=== PATIENT | female | born 1950 | race Caucasian/White ===

== ENCOUNTER 2016-07-04 17:11 | Emergency (ER) ==
[2016-07-04 17:27] VITALS: BP 129/87
[2016-07-04 17:38] LABS: MANUAL DIFF NEEDED? NO
[2016-07-04 17:43] LABS: BASO% 0.2 % (0.0-0.8); EOS# 0.17 X1000 (0.0-0.7); HEMOGLOBIN 13.3 g/dL (12.0-16.0); IMM GRAN# 0.02 X1000 (0.0-0.04); IMM GRAN% 0.4 % (0.0-0.5); LYMPH# 1.97 X1000 (1.2-3.4); LYMPH% 34.9 % (20.5-51.1); MCH 29.2 PG (27-31); MCHC 32.4 g/dL (33-37); MCV 89.9 FL (81-99); MONO# 0.65 X1000 (0.11-0.59); MONO% 11.5 % (1.7-9.3); MPV 9.9 FL (7.4-10.4); PLT 275 X1000 (130-400); RBC 4.56 XMIL (4.2-5.4)
[2016-07-04 18:02] LABS: URINE CULTURE NEEDED? NO; URINE MICRO REVIEW NEEDED? NO; URINE SOURCE CLEAN CATCH
[2016-07-04 18:07] LABS: BILIRUBIN URINE NEGATIVE (NEGATIVE); BLOOD URINE TRACE (NEGATIVE); COLOR YELLOW; GLUCOSE URINE NEGATIVE (NEGATIVE); LEUKOCYTES URINE NEGATIVE (NEGATIVE); NITRITE URINE NEGATIVE (NEGATIVE); PROTEIN URINE NEGATIVE (NEGATIVE); SP GRAVITY URINE 1.007; TURBIDITY URINE CLEAR (CLEAR); UROBILINOGEN URINE NORMAL (NORMAL)
[2016-07-04 18:10] LABS: UR EPITHELIAL CELLS <10 /HPF (<10); URINE BACTERIA NEGATIVE /HPF; URINE RBC <10 /HPF (<10); URINE WBC <10 /HPF (<10)
[2016-07-04 18:15] LABS: AGAP 10; ALBUMIN 4.3 g/dL (3.5-5.0); ALKALINE PHOSPHATASE 83 U/L (32-104); BUN 9 mg/dL (8-22); CALCIUM 9.8 mg/dL (8.8-10.2); CHLORIDE 98 mmol/L (98-107); COSMO 269; GOT 17 U/L (10-30); GPT 28 U/L (10-36); POTASSIUM 3.7 mmol/L (3.5-5.1); SODIUM 135 mmol/L (136-145); TCO2 27 mmol/L (25-35); TOTAL BILIRUBIN 0.15 mg/dL (0.20-1.00); TOTAL PROTEIN 6.9 g/dL (6.3-8.3)
[2016-07-04 18:18] LABS: UR AMPHETAMINES QUAL NONE DETECTED (NONE DETECT); UR BARBITUATES QUAL NONE DETECTED (NONE DETECT); UR BENZODIAZEPIN QUAL PRESUMPTIVE POSITIVE (NONE DETECT); UR CANNABINOIDS QUAL NONE DETECTED (NONE DETECT); UR COCAINE QUAL NONE DETECTED (NONE DETECT); UR METHADONE QUAL NONE DETECTED (NONE DETECT); UR OPIATES QUAL PRESUMPTIVE POSITIVE (NONE DETECT); UR OXYCODONE QUAL NONE DETECTED (NONE DETECT); UR PCP QUAL NONE DETECTED (NONE DETECT)
== END 2016-07-04 20:34 | disposition left against medical advice (07) ==
LOC: ED 17:11
DX: R52 Pain, unspecified (principal)
CPT/HCPCS: 80053; 81001; 85025; G0480

== ENCOUNTER 2017-02-12 18:11 | Inpatient (IN) ==
[2017-02-12 18:36] LABS: MANUAL DIFF NEEDED? NO
[2017-02-12 18:38] LABS: BASO% 0.1 % (0.0-0.8); EOS# 0.05 X1000 (0.0-0.7); EOS% 0.6 % (0.0-10.0); HEMATOCRIT 36.9 % (37.0-47.0); HEMOGLOBIN 12.2 g/dL (12.0-16.0); IMM GRAN# 0.01 X1000 (0.0-0.04); IMM GRAN% 0.1 % (0.0-0.5); LYMPH# 1.68 X1000 (1.2-3.4); LYMPH% 20.7 % (20.5-51.1); MCH 29.5 PG (27-31); MCHC 33.1 g/dL (33-37); MCV 89.1 FL (81-99); MONO# 0.93 X1000 (0.11-0.59); MONO% 11.4 % (1.7-9.3); MPV 9.8 FL (7.4-10.4); NEUT% 67.1 % (42.2-75.2); PLT 251 X1000 (130-400); RBC 4.14 XMIL (4.2-5.4)
[2017-02-12 18:46] LABS: UR AMPHETAMINES QUAL NONE DETECTED (NONE DETECT); UR BARBITUATES QUAL NONE DETECTED (NONE DETECT); UR BENZODIAZEPIN QUAL NONE DETECTED (NONE DETECT)
[2017-02-12 18:47] LABS: UR CANNABINOIDS QUAL NONE DETECTED (NONE DETECT); UR COCAINE QUAL NONE DETECTED (NONE DETECT); UR MDMA QUAL NONE DETECTED (NONE DETECT); UR METHADONE QUAL NONE DETECTED (NONE DETECT); UR METHAMPHETAMINE QUAL NONE DETECTED (NONE DETECT); UR OPIATES QUAL PRESUMPTIVE POSITIVE (NONE DETECT); UR OXYCODONE QUAL NONE DETECTED (NONE DETECT); UR PCP QUAL NONE DETECTED (NONE DETECT); UR TCA QUAL NONE DETECTED (NONE DETECT)
[2017-02-12] MEDS ORDERED: NARCAN IV ONE ×2 (18:47→18:55)
[2017-02-12] MEDS ORDERED: NARCAN ONE (18:48)
[2017-02-12] MEDS ORDERED: NS 1,000 ML ONE (18:48)
[2017-02-12 18:56] LABS: ACETAMINOPHEN < 1.2 ug/mL (10-30); AGAP 11; ALBUMIN 4.4 g/dL (3.5-5.0); ALKALINE PHOSPHATASE 67 U/L (32-104); BUN 35 mg/dL (8-22); CALCIUM 10.1 mg/dL (8.8-10.2); CHLORIDE 90 mmol/L (98-107); COSMO 268; GOT 19 U/L (10-30); GPT 12 U/L (10-36); POTASSIUM 4.1 mmol/L (3.5-5.1); SODIUM 129 mmol/L (136-145); TCO2 28 mmol/L (25-35); TOTAL PROTEIN 7.3 g/dL (6.3-8.3)
[2017-02-12] MEDS ORDERED: NS 1,000 ML IV ONE (18:56)
--- NOTE | 2017-02-12 19:57 | Diag Imaging Result Doc PS360 ---
EXAM: CHEST-PORTABLE INDICATION: somnolence TECHNIQUE: One view COMPARISON: 03/08/2016 FINDINGS: The lungs are grossly clear. There is no discrete pleural fluid collection or pneumothorax. The cardiomediastinal silhouette and central vasculature are grossly unremarkable. IMPRESSION: No evidence of acute pathology by plain radiograph. Electronically signed by Kayden Haynes 02/12/2017 7:55 PM
--- NOTE | 2017-02-12 20:20 | PROVIDER DOCUMENTATION ---
This chart was entered by Audelia Shafer Scribe, acting as scribe for Rene Alfonso MD. HPI-General Adult - General Chief Complaint: Ingestion,Accidental Stated Complaint: Accidental Overdose Time Seen by Provider: 02/12/17 18:29 Source: family Allergies/Adverse Reactions: Patient Allergies Allergy/AdvReac Type Severity Reaction Status Date / Time No Known Allergies Allergy Verified 07/22/15 13:56 Home Medications: Home Medication List Medication Instructions Recorded Confirmed Last Taken Type Aspirin 81 mg PO DAILY 04/08/14 07/22/15 09/19/14 History Hydrocodone/APAP 10 mg/325 mg 10 mg PO DAILY PRN 04/08/14 07/22/15 09/19/14 History [[place]-10] Morphine Sulfate [Morphine Sulfate 100 mg PO DAILY PRN 04/08/14 07/22/15 History ER] Albuterol Sulfate [Albuterol 1 - 2 puff IH 3-4XDAY PRN PRN #1 09/19/14 07/22/15 Unknown Rx Sulfate Hfa] hfa.aer.ad Metoprolol [Lopressor] 25 mg PO BID #60 tablet 09/19/14 07/22/15 Unknown Rx Nebulizer Accessories [E-Z Spacer 1 each MC BID #1 each 09/19/14 07/22/15 Unknown Rx Pedspak] Olanzapine Rapdis [Zyprexa Zydis] 5 mg PO DAILY #30 tablet 09/19/14 07/22/15 Unknown Rx Potassium Chloride [K-Tab] 20 meq PO DAILY #60 tablet.er 09/19/14 07/22/15 Unknown Rx Amoxicillin/Pot Clavulanate 875 mg PO Q12HR #14 tablet 03/11/15 07/22/15 Unknown Rx [Augmentin] Baclofen 20 mg PO 03/11/15 07/22/15 Unknown History Ofloxacin Otic [Floxin Otic] 5 drop .ROUTE BID #1 bottle 03/11/15 07/22/15 Unknown Rx Morphine Sulfate 30 mg PO BID #6 tablet 07/22/15 Unknown Rx Sulfamethoxazole/Trimethoprim 1 each PO BID #20 tablet 03/08/16 Unknown Rx [Bactrim Ds Tablet] Clonidine [Catapres] 0.1 mg PO DAILY #14 tablet 06/27/16 Unknown Rx Ondansetron [Zofran] 4 mg PO Q6H PRN PRN #20 tablet 06/27/16 Unknown Rx Lisinopril 20 mg PO QAM #90 tablet 02/10/17 Unknown Rx - History of Present Illness -Gen Adult Nature of Presenting Problems: 66 Y/O F presents to ER by EMS with the complain of taking her dialy pain medication twice. pt family states that pt has lower back and spine pain history and takes those medications. pt family states that pt went to take nap in her bed and was found unresponsive by her . pt family denies any other symptoms. Severity: reports: moderate Onset/Duration: reports: just prior to arrival Timing: reports: still present Review of Systems - Adult - REVIEW OF SYSTEMS - ADULT Constitutional: reports: no symptoms reported Eyes: reports: no symptoms reported Ears, Nose, Mouth & Throat: reports: no symptoms reported Cardiovascular: reports: no symptoms reported Respiratory: reports: no symptoms reported Gastrointestinal: reports: no symptoms reported Genitourinary: reports: no symptoms reported Musculoskeletal: reports: no symptoms reported Integumentary: reports: no symptoms reported Neurological: reports: no symptoms reported Psychiatric: reports: alcohol/drug dependence (overdose on daily pain medications). denies: emotional problems, panic attacks, suicidal thoughts Endocrine: reports: no symptoms reported Hematologic/Lymphatic: reports: no symptoms reported Allergic/Immunologic: reports: no symptoms reported All Other Systems: Reviewed and Negative Past History - Adult - PAST MEDICAL HISTORY-ADULT Review of Records: reports: Old Records Reviewed, Nursing Assessment Review Major Childhood Illnesses: reports: denies history Cardiovascular: reports: HTN Respiratory: reports: denies history Gastrointestinal: reports: denies history Obstetrical/Gynecological: reports: other (left breast ca) Genitourinary: reports: denies history Musculoskeletal: reports: arthritis, chronic pain Neurological: reports: denies history Endocrine/Immune: reports: denies history Other Conditions: reports: denies history - PRIOR SURGERIES/PROCEDURES Surgical/Procedure History: reports: cholecystectomy, back/neck (neck), other ( mastectomy) - IMMUNIZATION STATUS Childhood Immunizations: See Nurse Assessment Flu Vaccine: See Nurse Assessment - FAMILY HISTORY Family History: reviewed, not pertinent Physical Exam-General - PHYSICAL EXAM-ADULT Initial Vital Signs Reviewed: Yes - CONSTITUTIONAL General Appearance: mild distress, thin - EYES Eyes: PERRL/EOMI, pink conjunctivae - HEAD, EARS, NOSE, MOUTH & THROAT HENMT: moist mucous membranes, normal ENT inspection - NECK Neck: non-tender, full range of motion, supple - RESPIRATORY Respiratory: chest non-tender, lungs clear, normal breath sounds - CARDIOVASCULAR Cardiovascular: normal peripheral pulses, regular rate, rhythm - GASTROINTESTINAL (ABDOMEN) Abdominal Exam: normal bowel sounds, non tender, soft - MUSCULOSKELETAL Back Exam: normal inspection, no CVA tenderness, no vertebral tenderness Extremity: non-tender, normal inspection - SKIN Integumentary: normal color, normal turgor, warm/dry - NEUROLOGIC Neurologic: grossly normal, no motor/sensory deficits Progress - PLAN OF CARE/RESULTS Progress/Plan/Lab Results: Vital Signs - 8 hr 02/12/17 18:13 Temperature 100.8 F H Pulse Rate 87 Respiratory Rate 14 Blood Pressure 105/59 O2 Sat by Pulse Oximetry 96 Laboratory Results - last 24 hr 02/12/17 18:31 WBC 8.13 RBC 4.14 L Hgb 12.2 Hct 36.9 L MCV 89.1 MCH 29.5 MCHC 33.1 RDW Std Deviation 12.4 Plt Count 251 MPV 9.8 Immature Gran % (Auto) 0.1 Neut % (Auto) 67.1 Lymph % (Auto) 20.7 Bradley % (Auto) 11.4 H Eos % (Auto) 0.6 Baso % (Auto) 0.1 Immature Gran # (Auto) 0.01 Neut # (Auto) 5.45 Lymph # (Auto) 1.68 Bradley # (Auto) 0.93 H Eos # (Auto) 0.05 Baso # (Auto) 0.01 Orders Category Date Time Status Cardiac Monitoring DIRECTED Care 02/12/17 18:16 Active Saline Loc DIRECTED Care 02/12/17 18:16 Active ACETAMINOPHEN [TDM] Stat Lab 02/12/17 18:31 Received ALCOHOL BLOOD Stat Lab 02/12/17 18:31 Received CBC WITH ELECTRONIC DIFF [HEME] Stat Lab 02/12/17 18:31 Completed COMPREHENSIVE METABOLIC PANEL [CHEM] Stat Lab 02/12/17 18:31 Received SALICYLATES [TDM] Stat Lab 02/12/17 18:31 Re[address] DRUG SCREEN PL Stat Lab 02/12/17 18:27 Received Pulse Oximetry Stat Oth 02/12/17 18:16 Active EKG [EKG] Stat Ther 02/12/17 18:16 Ordered Result Diagrams: 02/12/17 18:31 02/12/17 18:31 - REASSESSMENT Reassessment #1 Time Reassessed: 20:18 Status: improving Reassessment Comment: admission offered but patient refused. Wants to go home take care of dogs - EKG 1 Time of EKG reading by physician:: 19:02 EKG Read and Signed by:: Rene Alfonso EKG Interpretation (*Must complete 3 of following elements*): Abnormal Rate: 129 Rhythm: sinus tachycardia with premature supraventricular complexes Comments: sinus tachycardia with premature supraventricular complexes, otherwisenormal - XRAY 1 XRAY: Bilateral XRAY Study: Chest Impression: Normal XRAY Interpretation: no evidence of acute pathology by radiologist Departure - Departure Date of Disposition Decision: 02/12/17 Time of Disposition Decision: 20:19 DIAGNOSIS: Polypharmacy, Opiate abuse, episodic Disposition: HOME 01 Certified Medical Emergency: Emergent Condition: Stable Referrals and Follow-Ups: None,PCP [Primary Care Provider] - - Critical Care Note This patient required my direct & personal management of CC.: Yes Total Time (mins): 60 Critical Care Statement: This patient required my direct personal management to treat or rule out processes, the absence of which, could potentiallly result in sudden, clinically significant life or limb threatening deterioration. Attestation - Physician/ JONES Attestation The physician spent face to face time with patient:: Yes Advanced Practice Provider documentation review:: Supervising physician onsite and consulted in the evaluation and care of this patient. The physician did have a face to face encounter with the patient. This chart was documented by the indicated scribe, (Audelia Shafer Scribe) and accurately reflects the services I performed and decisions made by me, Rene Alfonso MD, as attested by the provider's signature.
--- NOTE | 2017-02-12 21:14 | EKG Report ---
Test Performed on : 02/12/2017 7:02:43 PM Test Reason : Suspected Overdose Blood Pressure : / mmHG Vent. Rate : 129 BPM Atrial Rate : 129 BPM P-R Int : 172 ms QRS Dur : 082 ms QT Int : 286 ms P-R-T Axes : 082 058 025 degrees QTc Int : 418 ms Sinus tachycardia. with premature supraventricular complexes. Otherwise normal ECG When compared with ECG of 12-FEB-2017 18:58, (Unconfirmed) Previous ECG has undetermined rhythm, needs review Unconfirmed Result
[2017-02-13] MEDS: TYLENOL PO PRN (09:48)
[2017-02-13] MEDS: NS 1,000 ML IV SCH ×2 (09:49→19:46)
[2017-02-13 10:39] LABS: AGAP 11; BUN 18 mg/dL (8-22); CALCIUM 10.3 mg/dL (8.8-10.2); CHLORIDE 98 mmol/L (98-107); COSMO 278; POTASSIUM 3.3 mmol/L (3.5-5.1); SODIUM 138 mmol/L (136-145); TCO2 29 mmol/L (25-35)
--- NOTE | 2017-02-13 11:35 | HISTORY AND PHYSICAL ---
PRIMARY PLANT SENIOR MANAGER: HEDY Pereyra. CHIEF COMPLAINT: Was found unresponsive by her after she apparently took 2 doses of her pain medication. HISTORY OF PRESENTING ILLNESS: This is a 66-year-old female who presents to [facility] ER via EMS after found her lying in the bed unresponsive. Apparently the patient had taken 2 doses of her pain medication unintentionally, and was found in the bed unresponsive. When she arrived to the emergency room, she had a temperature of a 100.8. Her sodium was 129, chloride 90, BUN of 35, with a creatinine of 3.7. According to her records, in June of this year, she had a creatinine that was normal at 0.7. She was admitted for further evaluation and treatment. PAST MEDICAL HISTORY: Of hypertension, left breast cancer and chronic pain. PAST SURGICAL HISTORY: Of a cholecystectomy, back and neck surgery, and a left mastectomy. FAMILY HISTORY: Noncontributory. SOCIAL HISTORY: She currently lives with her . Denies any tobacco, alcohol, or illicit drug use. ALLERGIES: She has no known drug allergies. HOME MEDICATIONS: We will verify her home medications and restart as appropriate. LABORATORY DATA: Showed a white blood cell count of 8.13, a hemoglobin of 12.2, hematocrit 36.9, platelets 251,000. Sodium of 129, potassium 4.1, chloride 90, CO2 of 28, BUN of 35, with a creatinine of 3.7, glucose 110. Troponin of 0.024. Urine drug screen was presumptive positive for opiates. Salicylate level was less than 3. Acetaminophen level was less than 1.2. Serum alcohol level showed none detected. A chest x-ray showed no evidence of acute pathology by plain radiograph. EKG showed sinus tachycardia with premature supraventricular complexes at 1:29. REVIEW OF SYSTEMS: She denied any fever, chills, blurred vision, dizziness. She is positive for a headache. Denies any chest pain, coughing, shortness of breath. She denies any abdominal pain, constipation, diarrhea, nausea, vomiting, or burning or hurting with urination. PHYSICAL EXAMINATION: VITAL SIGNS: On arrival, showed a temperature of a 100.8 degrees, respirations 14, pulse 87, blood pressure 105/59, saturating 96% on 2 L via nasal cannula. GENERAL: This is a 66-year-old female who is lying in the bed, and answers questions appropriately. HEENT: Head is normocephalic and atraumatic. Pupils are equal, round, reactive to light. The extraocular movements are intact. The oropharynx and nares are clear. NECK: Supple. LUNGS: Clear to auscultation bilaterally with equal lung expansion and chest wall movement. HEART: With regular rate and rhythm. No murmurs, rubs, or gallops. ABDOMEN: Soft, nontender, nondistended. Bowel sounds are present x4 quadrants. EXTREMITIES: There is no clubbing, cyanosis, or edema. NEUROLOGICAL: The cranial nerves 2-12 appear grossly intact. ASSESSMENT: 1. An unintentional overdose. 2. Hyponatremia. 3. Acute kidney injury. 4. Hypertension. PLAN: She has been admitted to the Medical Unit at [facility]. We will place her on normal saline at 125 mL an hour, Tylenol 650 p.o. q.6 hours p.r.n. We will recheck a BMP this morning, and re- evaluate her kidney function and her sodium, and will verify her home medications. Dictated by HEDY Craig for Juan Pablo Amaro MD cc: HEDY Craig MD Lori Henry, CRNP
[2017-02-13] MEDS ORDERED: KLOR-CON PO ONE ×2 (14:37→20:00)
[2017-02-14] MEDS: TYLENOL PO PRN (01:23)
[2017-02-14] MEDS: NS 1,000 ML IV SCH ×2 (01:24→08:25)
--- NOTE | 2017-02-14 15:00 | DISCHARGE SUMMARY ---
ADMISSION DATE: 02/12/2017 DISCHARGE DATE: 02/14/2017 ADDENDUM: The patient is much more awake and alert today. She is in no distress. She states that needs to get home because her is paralyzed. Family, in the room, corroborate her story. Likely, admission was caused by unintentional accidental overdose of medication that has worn off. We will discharge home. cc: Juan Pablo Amaro MD
[2017-02-14 15:54] VITALS: BP 159/77
--- NOTE | 2017-02-14 21:56 | DISCHARGE SUMMARY ---
ADMISSION DATE: 02/12/2017 DISCHARGE DATE: 02/14/2017 PRIMARY CARE PHYSICIAN: HEDY Pereyra. ADMISSION DIAGNOSES: 1. An intentional overdose. 2. Hyponatremia. 3. Acute kidney injury. 4. Hypertension. DISCHARGE DIAGNOSES: 1. Unintentional overdose resolved. 2. Hyponatremia resolved. 3. Acute kidney injury resolved. 4. Hypertension. SUMMARY OF FINDINGS: This is a 66-year-old who presented to the emergency room after found her lying in bed unresponsive. She had apparently taken 2 doses of her pain medication unintentionally and was found in the bed unresponsive. When she arrived her sodium was 129, chloride 90, BUN 35 with a creatinine of 3.7. Her normal creatinine approximately 8 months ago was 0.7. She was hydrated and we rechecked labs and that showed a creatinine of 0.9 so it is unsure if the original of 3.7 was accurate but her sodium corrected to 139 after 1 bag of fluids and her creatinine is now normal. She is alert and oriented and it is felt that she can safely be discharged home. DISCHARGE MEDICATIONS: Will include baclofen 20 mg p.o. daily, clonazepam 0.5 mg p.o. b.i.d., Alpine 10 one p.o. 4 times daily p.r.n., mirtazapine 15 mg p.o. at bedtime, morphine sulfate 30 mg p.o. daily and 100 mg p.o. daily, olanzapine 10 mg p.o. at bedtime, oxcarbazepine 300 mg p.o. at bedtime. FOLLOWUP: She will need to follow up with her primary care physician in the next 1-2 weeks. All discharge instructions have been reviewed with the patient. She verbalizes understanding. Dictated by HEDY Craig for Juan Pablo Amaro MD cc: MD Juan Pablo Abreu MD
--- NOTE | 2017-02-15 06:23 | PROGRESS NOTE ---
DATE: 02/13/2017 SUBJECTIVE: The patient notes that she somehow took too much of her medication. Denies any suicidal or homicidal ideations. Denies doing this on purpose. Daughter notes that she is much more awake and alert today but still somewhat confused. PHYSICAL EXAMINATION: Vital signs: Reviewed. Temp 100.2, pulse 91, respiratory rate 16, BP 143/62, sat 100% on 2 L. General: The patient is awake, alert. She appears oriented, although she is very slow answer questions. Lungs: She is in no respiratory distress. Extremities: Moves all extremities well. Neurological: No changes. PLAN: Hopefully, the patient actually will be able to be discharged home later this afternoon. We will discontinue her Regan catheter at this point. Will give her Tylenol. Allow her to get up and ambulate. Further orders as needed. cc: Juan Pablo Amaro MD
== END 2017-02-14 16:22 | disposition home or self-care (01) ==
LOC: P.MEDSURG 18:11 → P.ED 18:11 → SUATTDRO 22:09 → OBSVTOIN 22:09
PROVIDERS: ATTEND Family Medicine